=== PATIENT | female | born 1945 | race Caucasian/White ===

== ENCOUNTER 2016-12-15 08:25 | Day surgery (SDC) | payer MEDICARE, OTHER ==
--- NOTE | ~2016-12-15 | OP ---
Record Of Operation [facility] [address] [place]. [address] NAME: RADHA CARRERO : 47 [place] [facility] [place] [id number] AGE: 71 ADM/REG DATE : 12/15/16 MR#: [id number] REPORT SERV DATE: 12/15/16 DICTATED BY: THEA LAROSE DATE: 12/15/16 REPORT STATUS : Draft TRANSCRIBED BY: MODL DATE: 12/15/16 DATE OF PROCEDURE: PREOPERATIVE DIAGNOSIS: Left ureteral stone. POSTOPERATIVE DIAGNOSIS: Left ureteral stone. PROCEDURE PERFORMED: Left ureteroscopy with laser lithotripsy and basket stone fragment extraction. ANESTHESIA: General. COMPLICATIONS: None. DRAINS: Left double-J stent. INDICATION: Ms. Carrero is a 71-year-old with gross hematuria and intermittent severe flank pain. CT scan shows a 7 mm left proximal ureteral stone. This is not visible on KUB. She presents for ureteroscopy with laser lithotripsy. TECHNIQUE: Informed consent was obtained. She was brought to the operating room, general anesthesia was administered. Genitals and perineum were prepped and draped in the lithotomy position. Levaquin was given perioperatively. Rigid cystoscopy was performed. There was a cystocele. No tumor or stone in the bladder. Clear efflux from both UOs. Left retrograde pyelogram was performed. There was mild luminal ideal irregularity in the left proximal ureter, but no hydronephrosis and no hydroureter. I passed a 0.038 straight Glidewire up to the left kidney. A ureteral access sheath was advanced over the wire to the mid ureter. Flexible ureteroscopy was then performed. No stone was visualized in the left ureter. It appeared to have been pushed back up into a mid pole calyx. It was basketed in the mid pole calyx. It was too large to extract without lithotripsy. It was repositioned to an upper pole calyx. I removed the basket and passed a 200 micron holmium laser fiber. The stone was fragmented to pieces of 2-3 mm in size or smaller. I used an Dmailerage basket to basket extract all fragments larger than 1 mm. Retrograde pyelogram was repeated. There was no extravasation. I placed a 24 cm left double-J ureteral stent. Coil was confirmed fluoroscopically in the left renal pelvis and fluoroscopically in the bladder. The bladder was drained. I externalized the dangling string and secured this to the left inner thigh with Tegaderm. She may remove this on postop day #5 or have it removed in the office on postop day #7. GLEN/WILLIAMS Thea Larose M.D. Record Of [address] [address] NAME: RADHA CARRERO : 47 [place] [facility] [place] [id number] AGE: 71 ADM/REG DATE : 12/15/16 MR#: [id number] REPORT SERV DATE: 12/15/16 DICTATED BY: THEA LAROSE DATE: 12/15/16 REPORT STATUS : Draft TRANSCRIBED BY: WILLIAMS DATE: 12/15/16 / [id number] CC: Rikki Spencer M.D.
[~2016-12-15 08:25] MED LIST: ADDERALL20 MG PO; ADDERALL5 MG PO; ASA5GR PO; CELEXA20 PO; CENTRUM PO; D 5000 PO; DIOVAN HCT160 MG/25 PO; FLONASE NAS; IBU800 PO; MEGA RED KRILL OIL PO; PRILO PO; SINGULAIR1 PO; XYZAL5 MG PO; ZOCOR40 PO
[2016-12-15 09:17] LABS: BASOPHILS 0.5 %; BASOPHILS ABSOLUTE 0.04 10/3/uL (0.0-0.16); EOSINOPHILS ABSOLUTE 0.23 10/3/uL (0.0-0.53); HEMATOCRIT 39.7 % (36.0-48.0); HEMOGLOBIN 13.9 g/dL (12.0-16.0); IMMATURE GRANULOCYTES 0.3 %; IMMATURE GRANULOCYTES ABSOLUTE 0.02 10/3/uL (0.0-0.11); LYMPHOCYTES 46.3 %; LYMPHOCYTES ABSOLUTE 3.53 10/3/uL (0.67-4.30); MANUAL DIFF NO %; MEAN CORPUSCULAR HEMOGLOB 30.8 pg (26.0-34.0); MEAN CORPUSCULAR VOLUME 87.8 fL (80-100); MEAN PLATELET VOLUME 10.1 fL (9.2-13.0); MONOCYTES 8.7 %; MONOCYTES ABSOLUTE 0.66 10/3/uL (0.21-1.20); NEUTROPHILS 41.2 %; NEUTROPHILS ABSOLUTE 3.15 10/3/uL (2.02-8.40); PLATELET COUNT 266 10/3/uL (150-400); RBC DISTRIBUTION WIDTH 12.8 % (12.0-16.0); RED CELL COUNT 4.52 10/6/uL (4.0-5.6); WHITE BLOOD CELLS 7.6 10/3/uL (4.5-10.5)
[2016-12-15 09:35] LABS: ALBUMIN 3.8 G/DL (3.5-5.0); ALKALINE PHOSPHATASE 97 U/L (45-117); BUN (BLOOD UREA NITROGEN) 14 MG/DL (6-23); CALCIUM, SERUM 8.8 MG/DL (8.5-10.4); CHLORIDE, SERUM 105 MMOL/L (96-112); CO2 (CARBON DIOXIDE) 28 MMOL/L (24-34); CREATININE 0.78 MG/DL (0.55-1.02); GFR AFRICAN AMERICAN 89 ML/MIN (>=60); GFR NON AFRICAN AMERICAN 77 ML/MIN (>=60); GLUCOSE, SERUM 102 MG/DL (60-99); POTASSIUM, SERUM 3.7 MMOL/L (3.5-5.3); SGOT(AST) 25 U/L (5-40); SGPT(ALT) 49 U/L (5-65); SODIUM, SERUM 142 MMOL/L (135-148); TOTAL BILIRUBIN 0.6 MG/DL (0-1.2); TOTAL PROTEIN 7.1 G/DL (6.0-8.5)
[2016-12-15 09:37] LABS: DIRECT BILIRUBIN < 0.1 MG/DL (0.0-0.4); INDIRECT BILIRUBIN(NOT ORDER) 0.5 MG/DL (0.1-0.9)
[2016-12-17 20:49] LABS: STONE COMPOSITION TWO DNR (())
[2017-05-14] MEDS ORDERED: D 5000 PO (08:16)
== END 2016-12-15 13:07 | disposition home or self-care (01) ==
LOC: SDC 08:25
PROVIDERS: Urology
PROC: 0T778DZ Dilation of Left Ureter with Intraluminal Device, Via Natural or Artificial Opening Endoscopic (ICD-10-PCS; 2016-12-15)
PROC: 0TF78ZZ Fragmentation in Left Ureter, Via Natural or Artificial Opening Endoscopic (ICD-10-PCS; principal; 2016-12-15 09:45)
DX: N20.1 Calculus of ureter (principal); I10 Essential (primary) hypertension; F98.8 Other specified behavioral and emotional disorders with onset usually occurring in childhood and adolescence; Z87.442 Personal history of urinary calculi; Z88.2 Allergy status to sulfonamides; Z88.8 Allergy status to other drugs, medicaments and biological substances; Z88.5 Allergy status to narcotic agent
CPT/HCPCS: 74420; 80048; 80076; 82365; 85025; 93005; A9270-GY; C1758; C1769; C1894; C2617; J1170; J1885; J2405; J3010; Q9967